=== PATIENT | female | born 1945 | race Caucasian/White ===

== ENCOUNTER 2023-04-19 10:37 | Outpatient (CLI) | payer MEDICARE, OTHER | END 2023-04-19 10:38 | disposition home or self-care (01) | LOC: CSHCP 10:37 | PROVIDERS: ATTEND Internal Medicine | DX: R06.09 Other forms of dyspnea (principal); J44.9 Chronic obstructive pulmonary disease, unspecified | CPT/HCPCS: 94060; 94618; 94664; 94726; 94729 ==

== ENCOUNTER 2023-09-08 07:37 | Outpatient (CLI) | payer MEDICARE, OTHER | END 2023-09-08 07:38 | disposition home or self-care (01) | LOC: CSHCT 07:37 | PROVIDERS: ATTEND Physician Assistant | DX: R06.02 Shortness of breath (principal); J84.9 Interstitial pulmonary disease, unspecified | CPT/HCPCS: 71250 ==

== ENCOUNTER 2025-01-28 09:25 | Outpatient (CLI) | payer MEDICARE | END 2025-01-28 09:26 | disposition home or self-care (01) | LOC: CSHSLEEP 09:25 | PROVIDERS: ATTEND Family Medicine | DX: G47.33 Obstructive sleep apnea (adult) (pediatric) (principal) | CPT/HCPCS: 95800 ==